=== PATIENT | female | born 1995 | race Caucasian/White ===

== ENCOUNTER → 2019-07-18 | Outpatient (CLI) | payer OTHER ==
--- NOTE | 2019-07-18 12:34 | US ---
EXAMINATION TYPE: US abdomen complete DATE OF EXAM: 07/18/2019 COMPARISON: NONE CLINICAL HISTORY: 24-year-old female R10.11 right upper quadrant pain. TECHNIQUE: Multiple sonographic images of the abdomen are obtained. FINDINGS: EXAM MEASUREMENTS: Liver Length: 14.3 cm Gallbladder Wall: 0.2 cm CBD: 0.2 cm Spleen: 12.6 cm Right Kidney: 10.4 x 3.5 x 4.7 cm Left Kidney: 10.3 x 5.0 x 4.5 cm Pancreas: Pancreatic head and tail obscured by bowel gas, portions visualized wnl Liver: wnl Gallbladder: wnl Evidence for sonographic Santana's sign: Not reported CBD: wnl Spleen: scattered echogenic foci Right Kidney: No hydronephrosis. Left Kidney: Inferior pole obscured by bowel gas, portions visualized wnl Upper IVC: wnl Abd Aorta: bifurcation obscured by overlying bowel gas IMPRESSION: No cholelithiasis or acute cholecystitis. No biliary ductal dilatation. 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
== END | disposition home or self-care (01) ==
LOC: RADUSWWP 10:58
PROVIDERS: ATTEND Internal Medicine
DX: R10.11 Right upper quadrant pain (principal); Z88.0 Allergy status to penicillin; Z88.1 Allergy status to other antibiotic agents; Z88.8 Allergy status to other drugs, medicaments and biological substances
CPT/HCPCS: 76700